=== PATIENT | male | born 1960 | race Hispanic/Latino ===

== ENCOUNTER 2021-03-01 13:17 | Outpatient (RCR) | payer BC, SELFPAY ==
[2021-03-01] MEDS: diphenhydrAMINE HCl CAP 25 MG CAPSULE PO (13:51)
[2021-03-01] MEDS: ACETAMINOPHEN 325 MG TABLET 650 MG PO (13:51)
[2021-03-01] MEDS: FAMOTIDINE 20 MG TABLET PO (13:51)
[2021-03-01 14:00] VITALS: BP 146/88; PULSE 70; RESP 20; TEMP 36.5; O2SAT 100
[2021-03-01 15:46] VITALS: BP 127/72
--- NOTE | 2021-03-02 15:42 | PC.NURSE ---
Patient after infusion had chills, fever and body aches. Fever was approximately 101. Symptoms lasted approximately 6 hours.
== END 2021-03-01 16:08 | disposition home or self-care (01) ==
LOC: AMCINF 13:17
PROVIDERS: Referring Provider Family Medicine; Visit Provider Internal Medicine Hematology & Oncology
DX: Z23 Encounter for immunization (principal); U07.1 COVID-19; E11.9 Type 2 diabetes mellitus without complications
CPT/HCPCS: A9270; J7050; M0243